=== PATIENT | female | born 1960 | race Caucasian/White ===

== ENCOUNTER → 2020-02-25 | Outpatient (CLI) | payer OTHER | END | disposition home or self-care (01) | LOC: LAB EV 18:40 → LAB SHORT 18:40 | DX: N39.0 Urinary tract infection, site not specified (principal) | CPT/HCPCS: 87077; 87086; 87186 ==

== ENCOUNTER → 2020-03-02 | Outpatient (CLI) | payer OTHER ==
[2020-03-04 23:08] LABS: CHLAMYDIA TRACHOMATIS, NAA Negative (Negative); NEISSERIA GONORRHOEAE, NAA Negative (Negative)
== END ==
LOC: LAB EV 18:38 → LAB SHORT 18:38
PROVIDERS: Physician Assistant
DX: R10.2 Pelvic and perineal pain (principal)
CPT/HCPCS: 87070; 87205; 87491; 87591

== ENCOUNTER → 2020-04-27 | Outpatient (CLI) | payer OTHER | END | disposition home or self-care (01) | LOC: LAB EV 18:50 → LAB SHORT 18:50 | DX: N76.0 Acute vaginitis (principal) | CPT/HCPCS: 87070; 87205 ==

== ENCOUNTER → 2020-06-03 | Outpatient (CLI) | payer OTHER | END | disposition home or self-care (01) | LOC: LAB SHORT 13:20 → LAB EV 13:20 | DX: N39.0 Urinary tract infection, site not specified (principal) | CPT/HCPCS: 87077; 87086; 87186 ==

== ENCOUNTER → 2020-06-27 | Outpatient (CLI) | payer OTHER ==
[~2020-06-27] MED LIST: BASAGLAR K100 UNIT/5 SC; LEVSOD75 PO; METF500 PO; Neurontin 300300 MG PO; Nortriptyline H50 MG PO
[2020-06-28 11:13] LABS: Candida species (DNA Probe) Negative (NEGATIVE); G. vaginalis (DNA Probe) Positive (NEGATIVE); T. vaginalis (DNA Probe) Negative (NEGATIVE)
== END | disposition home or self-care (01) ==
LOC: LAB SHORT 16:30 → LAB 16:30
PROVIDERS: Obstetrics & Gynecology
DX: N89.8 Other specified noninflammatory disorders of vagina (principal)
CPT/HCPCS: 87480; 87510; 87660

== ENCOUNTER 2020-07-14 08:57 | Day surgery (SDC) | payer OTHER ==
[~2020-07-14] VITALS: Ht 167.6 cm; Wt 120.6 kg
[~2020-07-14 08:57] MED LIST changes: -BASAGLAR K100 UNIT/5 SC
[2020-07-14] MEDS ORDERED: BASAGLAR K100 UNIT/5 SC (10:22)
--- NOTE | 2020-07-14 10:25 | NUR ---
Ambulatory in Day Surgery History, Chart, Medications and Allergies reviewed before start of procedure. Lungs clear T/O to Auscultation. Pre-Op teaching done. Pt verbalizes understanding.
--- NOTE | 2020-07-14 15:15 | NUR ---
PT ARRIVED TO UNIT ON STRETCHER, SLEEPING BUT A/O X 4, PLEASANT/COOPERATIVE. FOLLOWING, POSTOP VS COMMENCED. NC 1L AT 95%
--- NOTE | 2020-07-14 17:40 | NUR ---
PT RESTING COMFORTABLY ON 2L NC WITH SPO2 >90%. MILD NAUSEA, NO VOMITING. PT RATES PAIN AT 2-3/10 FOLLOWING MEDICATION PER MAR. PT'S IS IN ROOM WITH PT. MAN PAD CHANGED X 1. LAP SITES X 4 C/D/I WITH DERMABOND, DRIED DRAINAGE AROUND UMBILICAL LAP SITE. POST OP VSS.
--- NOTE | 2020-07-15 05:53 | NUR ---
SHIFT SUMMARY ROBOTIC TOTAL LAP HYSTER POD1, A/O X4, SCANT BLEEDING, TOLERATING PO, AMBULATING, SOLIS DC'D, PAIN WELL CONTROLLED PER EMAR. CALL LIGHT IN REACH, WILL CONTINUE TO MONITOR AND REPORT TO ONCOMING DAY RN.
--- NOTE | 2020-07-15 07:10 | NUR ---
recvd report from previous RN Jian, pt sleeping in bed, bed in lowest position, bed rails up x 2, call light within reach
--- NOTE | 2020-07-15 11:20 | NUR ---
pt voided 250 ml
--- NOTE | 2020-07-15 14:04 | NUR ---
PROVIDED PT AND WITH DISCHARGE INSTRUCTIONS/PRINTED MATERIALS. PT WAS PROVIDED WRITTEN PRESCRIPTIONS PREVIOUS BY . PT STATES UNDERSTANDING OF INSTRUCTIONS. PERIPHERAL IV REMOVED WNL. PT'S CARRIED PT'S BELONGINGS TO AWAITING VEHICLE. PT ESCORTED TO VEHICLE VIA WHEELCHAIR.
== END 2020-07-15 14:06 | disposition home or self-care (01) ==
LOC: ORSCMMR 08:57 → ORD 10:30 → SURS 14:54 → ORSCMMR 07-15 14:06
PROVIDERS: Obstetrics & Gynecology
PROC: 8E0W4CZ Robotic Assisted Procedure of Trunk Region, Percutaneous Endoscopic Approach (ICD-10-PCS; principal; 2020-07-14 10:30)
PROC: 0UT94ZZ Resection of Uterus, Percutaneous Endoscopic Approach (ICD-10-PCS; principal; 2020-07-14 10:30)
PROC: 0JQC0ZZ Repair Pelvic Region Subcutaneous Tissue and Fascia, Open Approach (ICD-10-PCS; principal; 2020-07-14 10:30)
PROC: 0UT74ZZ Resection of Bilateral Fallopian Tubes, Percutaneous Endoscopic Approach (ICD-10-PCS; principal; 2020-07-14 10:30)
DX: N81.4 Uterovaginal prolapse, unspecified (principal); E03.9 Hypothyroidism, unspecified; E11.9 Type 2 diabetes mellitus without complications; Z79.4 Long term (current) use of insulin; Z79.84 Long term (current) use of oral hypoglycemic drugs; Z79.899 Other long term (current) drug therapy; E66.01 Morbid (severe) obesity due to excess calories; Z68.41 Body mass index [BMI] 40.0-44.9, adult
CPT/HCPCS: 58571; 57240; S2900; 82947; 86850; 86900; 86901; 88307; A9270; A9270-GY; J0690; J1100; J1580; J1885; J2250; J2405; J2704; J2710; J2765; J3010; J7120

== ENCOUNTER → 2020-08-15 | Outpatient (CLI) | payer OTHER ==
[~2020-08-15] MED LIST changes: +BASAGLAR K100 UNIT/5 SC
== END | disposition home or self-care (01) ==
LOC: LAB SHORT 13:36 → LAB 13:36
DX: N39.0 Urinary tract infection, site not specified (principal)
CPT/HCPCS: 87070; 87077; 87086; 87186; 87205

== ENCOUNTER → 2021-05-30 | Outpatient (CLI) | payer OTHER ==
[2021-05-30 08:50] LABS: Thyroid Stimulating Hormone 1.838 uIU/mL (0.360-4.800); Troponin I <0.017 ng/mL (0.000-0.040)
== END | disposition home or self-care (01) ==
LOC: LAB 08:26 → LAB SHORT 08:26
PROVIDERS: Physician Assistant Surgical
DX: R07.9 Chest pain, unspecified (principal); R53.83 Other fatigue
CPT/HCPCS: 84443; 84484; 85379

== ENCOUNTER → 2022-07-23 | Outpatient (CLI) | payer OTHER | END | disposition home or self-care (01) | LOC: LAB SHORT 12:10 → LAB 12:10 | DX: N12 Tubulo-interstitial nephritis, not specified as acute or chronic (principal) | CPT/HCPCS: 87077; 87086; 87147; 87186 ==

== ENCOUNTER 2023-01-03 10:56 | Day surgery (SDC) | payer OTHER ==
[~2023-01-03] VITALS: Ht 167.6 cm; Wt 126.8 kg
[2023-01-03] MEDS ORDERED: METF500 (11:17)
[2023-01-03] MEDS ORDERED: AMARYL1 M1 (11:17)
[2023-01-03] MEDS ORDERED: EUTHYROX50 MCG (11:18)
[2023-01-03] MEDS ORDERED: GABA100 (11:18)
[2023-01-03] MEDS ORDERED: GINKGO60 MG (11:18)
[2023-01-03] MEDS ORDERED: NORT10 (11:18)
== END 2023-01-03 15:00 | disposition home or self-care (01) ==
LOC: ORSCSDS 10:56
PROVIDERS: Internal Medicine Gastroenterology
PROC: 0DB78ZX Excision of Stomach, Pylorus, Via Natural or Artificial Opening Endoscopic, Diagnostic (ICD-10-PCS; principal; 2023-01-03 12:15)
PROC: 0DB98ZX Excision of Duodenum, Via Natural or Artificial Opening Endoscopic, Diagnostic (ICD-10-PCS; principal; 2023-01-03 12:15)
PROC: 0DJD8ZZ Inspection of Lower Intestinal Tract, Via Natural or Artificial Opening Endoscopic (ICD-10-PCS; principal; 2023-01-03 12:15)
PROC: 0D757ZZ Dilation of Esophagus, Via Natural or Artificial Opening (ICD-10-PCS; principal; 2023-01-03 12:15)
PROC: 0DB58ZX Excision of Esophagus, Via Natural or Artificial Opening Endoscopic, Diagnostic (ICD-10-PCS; principal; 2023-01-03 12:15)
DX: R13.10 Dysphagia, unspecified (principal); K21.9 Gastro-esophageal reflux disease without esophagitis; R14.0 Abdominal distension (gaseous); K64.8 Other hemorrhoids; K64.4 Residual hemorrhoidal skin tags; E11.9 Type 2 diabetes mellitus without complications; E78.5 Hyperlipidemia, unspecified; Z86.16 Personal history of COVID-19; Z79.899 Other long term (current) drug therapy; E03.9 Hypothyroidism, unspecified; J45.909 Unspecified asthma, uncomplicated; Z79.84 Long term (current) use of oral hypoglycemic drugs; M45.9 Ankylosing spondylitis of unspecified sites in spine; E66.01 Morbid (severe) obesity due to excess calories; Z68.42 Body mass index [BMI] 45.0-49.9, adult
CPT/HCPCS: 82947; 88305; 88342; J2001; J2250; J2704; J7120

== ENCOUNTER → 2023-10-03 | Outpatient (CLI) | payer OTHER ==
[~2023-10-03] MED LIST changes: +AMARYL1 M1; +EUTHYROX50 MCG; +GABA100; +GINKGO60 MG; +METF500; +NORT10
[2023-10-03 08:40] LABS: BASOPHILS ABSOLUTE AUTO 0.08 K/mm3 (0.00-0.23); BASOPHILS PERCENT AUTO 1 % (0-2); EOSINOPHILS ABSOLUTE AUTO 0.42 K/mm3 (0.00-0.68); EOSINOPHILS PERCENT AUTO 5 % (0-6); Hematocrit 40.4 % (33.0-51.0); Hemoglobin 13.1 g/dL (11.5-16.0); IMMATURE GRAN ABSOLUTE AUTO 0.05 K/mm3 (0.00-0.10); IMMATURE GRAN PERCENT AUTO 1 % (0-1); LYMPHOCYTES ABSOLUTE AUTO 2.32 K/mm3 (0.84-5.20); LYMPHOCYTES PERCENT AUTO 26 % (21-46); MONOCYTES PERCENT AUTO 8 % (4-13); Mean Corpuscular HGB 29.2 pg (26.0-34.0); Mean Corpuscular HGB Conc 32.4 g/dL (31.5-36.5); Mean Corpuscular Volume 90 fL (80-100); Mean Platelet Volume 10.2 fL (9.1-12.4); NEUTROPHILS ABSOLUTE AUTO 5.42 K/mm3 (1.96-9.15); NEUTROPHILS PERCENT AUTO 60 % (41-73); Platelet Count 272 K/mm3 (150-400); RDW Coefficient Variation 12.9 % (11.7-14.2); RDW Standard Deviation 42.3 fL (35.1-46.3); Red Blood Cell Count 4.48 M/mm3 (3.80-5.20); White Blood Cell Count 8.99 K/mm3 (4.00-11.30)
[2023-10-03 08:53] LABS: Albumin, Blood 3.2 g/dL (3.4-5.0); Albumin/Globulin Ratio 0.8 (0.8-1.8); Bilirubin, Total 0.3 mg/dL (0.1-1.0); Bun/Creatinine Ratio 10.3 (12.0-20.0); Creatinine, Blood 0.97 mg/dL (0.40-1.00); Globulin, Blood 4.1 g/dL (2.2-4.0); Total Protein, Blood 7.3 g/dL (6.4-8.2)
== END ==
LOC: LAB SHORT 08:35 → LAB 08:35
PROVIDERS: Emergency Medicine
DX: R10.9 Unspecified abdominal pain (principal)
CPT/HCPCS: 80053; 83605; 83690; 85025

== ENCOUNTER 2025-09-08 11:21 | Emergency (ER) | payer OTHER ==
[~2025-09-08] VITALS: Ht 167.6 cm; Wt 117.0 kg
[2025-09-08 12:15] LABS: BASOPHILS ABSOLUTE AUTO 0.05 K/mm3 (0.00-0.23); BASOPHILS PERCENT AUTO 1 % (0-2); EOSINOPHILS ABSOLUTE AUTO 0.14 K/mm3 (0.00-0.68); EOSINOPHILS PERCENT AUTO 3 % (0-6); Hematocrit 42.9 % (33.0-51.0); Hemoglobin 14.3 g/dL (11.5-16.0); IMMATURE GRAN ABSOLUTE AUTO 0.03 K/mm3 (0.00-0.10); IMMATURE GRAN PERCENT AUTO 1 % (0-1); LYMPHOCYTES ABSOLUTE AUTO 1.26 K/mm3 (0.84-5.20); LYMPHOCYTES PERCENT AUTO 31 % (21-46); MONOCYTES ABSOLUTE AUTO 0.83 K/mm3 (0.16-1.47); MONOCYTES PERCENT AUTO 20 % (4-13); Mean Corpuscular HGB Conc 33.3 g/dL (31.5-36.5); Mean Corpuscular Volume 88 fL (80-100); NEUTROPHILS ABSOLUTE AUTO 1.80 K/mm3 (1.96-9.15); NEUTROPHILS PERCENT AUTO 44 % (41-73); NRBC ABSOLUTE 0.00 K/mm3 (0.00-0.02); NRBC Auto 0.0 /100 WBC (0.0-0.2); Platelet Count 163 K/mm3 (150-400); RDW Coefficient Variation 12.4 % (11.7-14.2); RDW Standard Deviation 40.0 fL (35.1-46.3)
[2025-09-08 12:23] LABS: pH Blood Venous 7.42 (7.34-7.37)
[2025-09-08 12:30] LABS: Source, Urine Voided
[2025-09-08 13:01] LABS: Bilirubin, Urine Neg (Neg); Color, Urine Yellow (P-Yellow); Glucose Qualitative, Urine 4+ (Neg); Ketones, Urine 2+ (Neg); Leukocyte Esterase, Urine Neg (Neg); Protein, Urine 1+ (Neg); Specific Gravity, Urine 1.015 (1.003-1.022); Urobilinogen, Urine NORM (Normal)
[2025-09-08 13:10] LABS: Alanine Aminotransfer (ALT/SGP 31.0 U/L (12-78); Albumin, Blood 3.9 g/dL (3.4-5.0); Albumin/Globulin Ratio 1.1 (0.8-1.8); Anion Gap 11.0 mmol/L (3-11); Aspartate Aminotrans (AST/SGOT 24.0 U/L (12-37); Bilirubin, Total 0.6 mg/dL (0.1-1.0); Blood Urea Nitrogen 11.0 mg/dL (8-24); CO2, Blood 22.0 mmol/L (21-32); Calcium, Blood 9.2 mg/dL (8.5-10.1); Chloride, Blood 102.0 mmol/L (98-108); Creatinine, Blood 0.69 mg/dL (0.40-1.00); Globulin, Blood 3.7 g/dL (2.2-4.0); Glucose, Blood 434.0 mg/dL (70-99); Potassium, Blood 4.2 mmol/L (3.5-5.5); Sodium, Blood 131.0 mmol/L (136-145); Thyroid Stimulating Hormone 5.87 uIU/mL (0.360-4.800); Total Protein, Blood 7.6 g/dL (6.4-8.2)
[2025-09-08 13:12] LABS: Red Blood Cells, Urine 0-2 /hpf (0-2); White Blood Cells, Urine 50-100 /hpf (0-5)
[2025-09-08] MEDS ORDERED: CefTRIAXone Sodium 1,000 MG in NS 50 ML IV ONE (15:20)
[2025-09-08] MEDS ORDERED: CEPH500 PO (16:16)
[2025-09-08 16:30] VITALS: BP 140/74
== END 2025-09-08 16:40 | disposition home or self-care (01) ==
LOC: ER 11:21
PROVIDERS: Emergency Medicine
DX: E11.65 Type 2 diabetes mellitus with hyperglycemia (principal); N39.0 Urinary tract infection, site not specified; M71.22 Synovial cyst of popliteal space [Baker], left knee; Z88.8 Allergy status to other drugs, medicaments and biological substances; Z79.84 Long term (current) use of oral hypoglycemic drugs; Z79.890 Hormone replacement therapy; Z79.899 Other long term (current) drug therapy
CPT/HCPCS: 71046; 80053; 81001; 82010; 82803; 83690; 84443; 84484; 85025; 87077; 87086; 87186; 93005; 93010; 93971; 96365; 99285-25; J0696